=== PATIENT | female | born 1955 | race Caucasian/White ===

== ENCOUNTER 2017-05-14 06:03 | Emergency (ER) | payer OTHER ==
[~2017-05-14] VITALS: Ht 160 cm; Wt 55.8 kg
[2017-05-14] MEDS ORDERED: CYCLOBENZAPRINE 5 MG TABLET (06:19)
[2017-05-14] MEDS ORDERED: CELECOXIB 100 MG CAPSULE (06:19)
[2017-05-14] MEDS ORDERED: ESCITALOPRAM 20 MG TABLET (06:19)
[2017-05-14] MEDS ORDERED: BUPROPION HCL XL 300 MG TABLET (06:19)
--- NOTE | 2017-05-14 06:40 | NUR ---
pt AAO x4. Here with c/o stiff neck with pain of 9/10 x2 days. Able to speak in clear complete sentences and verbalize needs. No acute distress. Pt in bed at low position, call light within reach.
--- NOTE | 2017-05-14 06:47 | NUR ---
PONCE BROOKE at bedside for MSE
--- NOTE | 2017-05-14 07:13 | NUR ---
Patient discharged to home by MD himself in stable conditon. Written and verbal after care instructions given to patient. Patient verbalizes understanding of instructions. Patient left with brisk steady gait.
== END 2017-05-14 07:13 | disposition home or self-care (01) ==
LOC: ER 06:06
DX: M54.2 Cervicalgia (principal)
CPT/HCPCS: 99283; A4663

== ENCOUNTER 2019-02-02 03:12 | Emergency (ER) | payer OTHER, BC ==
[~2019-02-02] VITALS: Ht 160 cm; Wt 57.6 kg
[~2019-02-02 03:12] MED LIST: BUPROPION HCL XL 300 MG TABLET; CELECOXIB 100 MG CAPSULE; CYCLOBENZAPRINE 5 MG TABLET; ESCITALOPRAM 20 MG TABLET
--- NOTE | 2019-02-02 03:37 | NUR ---
MD AT BEDSIDE FOR HX AND PHYSICAL
--- NOTE | 2019-02-02 03:55 | NUR ---
PT ON HIGH RAMSAY'S POSITION, SUPINE, +GUARDING OF L FLANK PN, DESCRIBED DULL ABLE TO VOID FREELY AND PROVIDE URINE BED AT LOWEST POSITION [id number] UP
[2019-02-02 04:00] LABS: BASOPHILS # (AUTO) 0.1 K/uL (0.0-8.0); BASOPHILS % (AUTO) 0.8 % (0.0-2.0); EOSINOPHILS # (AUTO) 0.1 K/uL (0.0-0.7); HEMATOCRIT 42.1 % (31.2-41.9); LYMPHOCYTES # (AUTO) 2.5 K/uL (20.0-40.0); LYMPHOCYTES % (AUTO) 30.4 % (20.5-51.5); MEAN CORPUSCULAR HEMOGLOBIN 28.9 uug (24.7-32.8); MEAN CORPUSCULAR HGB CONC 33 g/dL (32.3-35.6); MEAN CORPUSCULAR VOLUME 87.2 fL (75.5-95.3); MONOCYTES # (AUTO) 0.7 K/uL (2.0-10.0); MONOCYTES % (AUTO) 8.8 % (0.0-11.0); NEUTROPHILS # (AUTO) 4.8 K/uL (1.8-8.9); PLATELET COUNT (AUTO) 260 K/uL (179-408); RED BLOOD CELL COUNT(AUTO) 4.83 MIL/uL (3.63-4.92); WHITE BLOOD COUNT (AUTO) 8.2 K/uL (3.8-11.8)
[2019-02-02] MEDS ORDERED: KETOROLAC TROMETHAMINE 30 MG INJ IM ONE (04:00)
[2019-02-02 04:02] LABS: *BILIRUBIN,URIN NEGATIVE (NEGATIVE); *BLOOD, URINE 2+ (NEGATIVE); *CLARITY,URINE CLEAR (CLEAR); *COLOR,URINE YELLOW (YELLOW); *KETONES,URINE NEGATIVE (NEGATIVE); *UROBILINOGEN,URINE 0.2 E.U./dl (NORMAL); LEUKOCYTE ESTERASE ,URINE NEGATIVE (NEGATIVE); NITRITE, URINE NEGATIVE (NEGATIVE); UGLUCOSE NEGATIVE (NEGATIVE)
[2019-02-02 04:05] LABS: CREATININE 1.2 mg/dL (0.6-1.3); POTASSIUM 4.3 mmol/L (3.5-5.1)
[2019-02-02] MEDS ORDERED: KETOROLAC TROMETHAMINE 30 MG INJ ONE (04:06)
[2019-02-02 04:11] LABS: BILIRUBIN,TOTAL 0.3 mg/dL (0.2-1.0); TOTAL PROTEIN, SERUM 7.9 g/dL (6.4-8.2)
[2019-02-02 04:14] LABS: BACTERIA,URINE FEW /HPF (NONE SEEN); SQUAMOUS EPITHELIAL CELL,UR FEW /HPF (NONE SEEN); WBC,URINE 0-3 /HPF (0-3)
--- NOTE | 2019-02-02 04:45 | NUR ---
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
--- NOTE | 2019-02-02 04:54 | NUR ---
PT BACK FROM CT VIA WHEELCHAIR
--- NOTE | 2019-02-02 04:55 | NUR ---
PAIN LEVEL REASSESSED FROM 7/10 L FLANK PN DOWN TO 4-5/10
--- NOTE | 2019-02-02 06:03 | NUR ---
Patient discharged to home in stable conditon. Written and verbal after care instructions given. Patient verbalizes understanding of instructions. ambulatory w/ stable gait all belongings w/ pt
[2019-02-02 06:05] VITALS: BP 107/71
== END 2019-02-02 06:06 | disposition home or self-care (01) ==
LOC: ER 03:14
DX: R10.9 Unspecified abdominal pain (principal); Z79.899 Other long term (current) drug therapy
CPT/HCPCS: 36415; 74176; 80053; 81000; 81001; 85025; 85610; 87086; 96372; 99284; J1885; A4663